=== PATIENT | female | born 2000 | race Two or more races ===

== ENCOUNTER 2018-01-25 22:04 | Emergency (ER) | payer OTHER ==
[2018-01-25 22:08] VITALS: BP 123/81
--- NOTE | 2018-01-25 22:17 | EDPHY ---
H & P Stated Complaint: L index finger lac, poss full thickness, unknown tetnus Time Seen by Provider: 01/25/18 22:10 HPI/ROS: HPI: The patient presents with laceration to her left index finger which occurred just prior to arrival when she cut herself with a pair of scissors. She has had small amount of bleeding which is mostly improved. She is not sure about her tetanus shot but she is [employer] student. She denies any numbness or tingling of her finger. REVIEW OF SYSTEMS 10 systems were reviewed and negative with the exception of the elements mentioned in the history of present illness. PMHx: Healthy TRAUMA PHYSICAL General Appearance: Alert, no distress Head: Atraumatic Respiratory: Breathing comfortably Skin: Left index finger overlying PIP joint laterally there is a 5 mm laceration with small amount of active bleeding which is non gaping and shallow , there is full range of motion of the digit Extremities: Non-tender, full range of motion Source: Patient Exam Limitations: No limitations - Personal History Current Tetanus/Diphtheria Vaccine: Unsure Current Tetanus Diphtheria and Acellular Pertussis (TDAP): Unsure - Medical/Surgical History Hx Asthma: No Hx Chronic Respiratory Disease: No Hx Diabetes: No Hx Cardiac Disease: No Hx Renal Disease: No Hx Cirrhosis: No Hx Alcoholism: No Hx HIV/AIDS: No Hx Splenectomy or Spleen Trauma: No Other PMH: denies - Social History Smoking Status: Never smoked Constitutional: Initial Vital Signs Temperature (C) 36.7 C 01/25/18 22:05 Heart Rate 74 01/25/18 22:05 Respiratory Rate 20 01/25/18 22:05 Blood Pressure 123/81 H 01/25/18 22:05 O2 Sat (%) 100 01/25/18 22:05 O2 Delivery Mode Room Air Allergies/Adverse Reactions: amoxicillin [From Augmentin] Allergy (Verified 01/25/18 22:08) Anaphylaxis clavulanic acid [From Augmentin] Allergy (Verified 01/25/18 22:08) Anaphylaxis sulfamethoxazole [From Bactrim] Allergy (Verified 01/25/18 22:08) Anaphylaxis trimethoprim [From Bactrim] Allergy (Verified 01/25/18 22:08) Anaphylaxis Home Medications: Medication Instructions Recorded NK [No Known Home Meds] 01/25/18 Medical Decision Making Procedures: LACERATION REPAIR Procedure: Laceration repair. Verbal consent was obtained from the patient. The linear 5 mm laceration on the left index finger. The wound was scrubbed, draped and explored to its base with a gloved finger. There were no deep structures involved. No tendon injury was identified. . The wound was repaired with tissue adhesive. The wound repair was simple. The procedure was performed by myself. SPLINT Procedure: Splint placement. A foam and metal finger splint was applied to the left index finger by the tech. After application of the splint I returned and re-examined the patient. The splint was adequately immobilizing the joint and distal to the splint the patient's circulation and sensation was intact. Differential Diagnosis: 17-year-old female with superficial left index finger laceration with minimal bleeding. She is neurovascularly intact with no tendon injury. Plan for Dermabond, splint, discharge. Departure - Departure Disposition: Home, Routine, Self-Care Clinical Impression: Laceration Condition: Good Instructions: Laceration (ED), Skin Adhesive Care (ED) Additional Instructions: Please keep the splint in place for the next 1-2 days. Return to the ER if you are worse in any way. Referrals: JOHN Luevano,. [Clinic] - As per Instructions
[2018-01-25] MEDS ORDERED: SKIN ADHESIVE (DERMABOND) 1 EACH TP ONE (22:18)
== END 2018-01-25 22:42 | disposition home or self-care (01) ==
PROC: 0HQGXZZ Repair Left Hand Skin, External Approach (ICD-10-PCS; principal; 2018-01-25)
DX: S61.211A Laceration without foreign body of left index finger without damage to nail, initial encounter (principal); W27.2XXA Contact with scissors, initial encounter; Z88.0 Allergy status to penicillin; Z88.2 Allergy status to sulfonamides
CPT/HCPCS: L3925